=== PATIENT | female | born 1975 | race American Indian/Alaskan Native ===

== ENCOUNTER 2017-06-11 05:00 | Emergency (ER) | payer OTHER ==
[2017-06-11 05:11] VITALS: BP 111/68
[2017-06-11] MEDS ORDERED: BOOSTRIX IM ONE (05:28)
[2017-06-11] MEDS ORDERED: NORCO 5/325 PO ONE (05:29)
[2017-06-11] MEDS ORDERED: ZOFRAN ODT PO ONE (05:29)
[2017-06-11] MEDS ORDERED: MOTRIN PO ONE (05:29)
[2017-06-11] MEDS ORDERED: AUGMENTIN 875 MG PO ONE (05:29)
--- NOTE | 2017-06-11 05:32 | Emergency Department Report ---
ED Animal Bite HPI - General Chief Complaint: Animal Bite Stated Complaint: DOG BITE LT HAND; URINARY FREQ Time Seen by Provider: 06/11/17 05:18 Source: patient Mode of arrival: Ambulatory Limitations: No Limitations - History of Present Illness Initial Comments: 42-year-old female past medical history none presents with complaint of accidental dog bite to left hand. Patient states she was playing with her pitbull at home yesterday and while playing with toy pit bull bit her left palm. Patient states that she has some aching pain in the middle of her left palm. Patient denies fevers or chills. States that the dog is acting normally and has all of its vaccinations including rabies. Patient does not know when she last received tetanus vaccine. Patient has 2 small abrasions on the palmar side of left hand with one small abrasion on back of left hand. Patient states that the skin is slightly sensitive. Denies any significant redness or pus drainage from site of puncture. States that injury occurred 24 hours ago. Denies any significant difficulty ranging her left hand or fingers. Patient states that animal does see a manager mechanical and she has documentation that he has had its vaccinations. Injury not reported to animal control MD Complaint: animal bite Onset/Timin -: days(s) Left: Hand Animal: dog Animal Control Notified: No Description: household pet Mechanism: bite Context: playing with animal Associated Symptoms: none - Related Data Patient Tetanus UTD: No Previous Rx's Medication Instructions Recorded Last Taken Type Acetaminophen/Codeine [Tylenol 1 tab PO Q6H PRN #12 tab 06/11/17 Unknown Rx /Codeine # 3 tab] Amoxicillin/Potassium Clav 1 each PO BID #20 tablet 06/11/17 Unknown Rx [Augmentin 875-125 Tablet] Bacitracin Zinc Oint [Antibiotic 1 applicatio TP BID #1 tube 06/11/17 Unknown Rx Oint] Ibuprofen [Motrin] 800 mg PO Q8HR PRN #30 tablet 06/11/17 Unknown Rx Nitrofurantoin Monohyd/M-Cryst 100 mg PO BID #14 capsule 06/11/17 Unknown Rx [Macrobid 100 mg Capsule] Allergies Allergy/AdvReac Type Severity Reaction Status Date / Time sulfamethoxazole Allergy Hives Verified 06/11/17 05:11 [From Bactrim] trimethoprim [From Bactrim] Allergy Hives Verified 06/11/17 05:11 ED Review of Systems ROS: Stated complaint: DOG BITE LT HAND; URINARY FREQ Other details as noted in HPI Constitutional: denies: chills, fever Eyes: denies: eye pain, eye discharge, vision change ENT: denies: ear pain, throat pain Respiratory: denies: cough, shortness of breath, wheezing Cardiovascular: denies: chest pain, palpitations Endocrine: no symptoms reported Gastrointestinal: denies: abdominal pain, nausea, diarrhea Genitourinary: denies: urgency, dysuria, discharge Musculoskeletal: as per HPI. denies: back pain, joint swelling, arthralgia Skin: denies: rash, lesions Neurological: denies: headache, weakness, paresthesias Psychiatric: denies: anxiety, depression Hematological/Lymphatic: denies: easy bleeding, easy bruising ED Past Medical Hx - Past Medical History Previous Medical History?: No - Surgical History Past Surgical History?: Yes Additional Surgical History: Hysterectomy - Social History Smoking Status: Current Every Day Smoker Substance Use Type: None - Medications Home Medications: Home Medications Medication Instructions Recorded Confirmed Last Taken Type Acetaminophen/Codeine [Tylenol 1 tab PO Q6H PRN #12 tab 06/11/17 Unknown Rx /Codeine # 3 tab] Amoxicillin/Potassium Clav 1 each PO BID #20 tablet 06/11/17 Unknown Rx [Augmentin 875-125 Tablet] Bacitracin Zinc Oint [Antibiotic 1 applicatio TP BID #1 tube 06/11/17 Unknown Rx Oint] Ibuprofen [Motrin] 800 mg PO Q8HR PRN #30 tablet 06/11/17 Unknown Rx Nitrofurantoin Monohyd/M-Cryst 100 mg PO BID #14 capsule 06/11/17 Unknown Rx [Macrobid 100 mg Capsule] ED Physical Exam - General Limitations: No Limitations General appearance: alert, in no apparent distress - Head Head exam: Present: atraumatic, normocephalic - Eye Eye exam: Present: normal appearance, PERRL, EOMI - ENT ENT exam: Present: mucous membranes moist - Neck Neck exam: Present: normal inspection - Respiratory Respiratory exam: Present: normal lung sounds bilaterally. Absent: respiratory distress - Cardiovascular Cardiovascular Exam: Present: regular rate, normal rhythm. Absent: systolic murmur, diastolic murmur, rubs, gallop - GI/Abdominal GI/Abdominal exam: Present: soft, normal bowel sounds - Extremities Exam Extremities exam: Present: normal inspection - Expanded Upper Extremity Exam Left Shoulder Exam: Present: normal inspection, full ROM Upper Arm exam: Present: normal inspection, full ROM Elbow exam: Present: normal inspection, full ROM Forearm Wrist exam: Present: normal inspection, full ROM Hand Wrist exam: Present: tenderness (some tenderness mid palm region near abrasion) Hand L/R Front: 1 - Positive: abrasion (2 small abrasions here less than 1 cm each no visible cellulitis or palpable fluctuance) Hand L/R Back: 1 - Less than 1 cm superficial abrasion/puncture wound here no palpable fluctuance visible erythema or redness here. Slight swelling surrounding puncture wound Neuro motor exam: Present: wrist extension intact, thumb opposition intact, thumb IP flexion intact, thumb adduction intact, fingers 2-5 abduction intact Neurosensory exam: Present: radial nerve intact, ulnar nerve intact, median nerve intact Vascular: Present: normal capillary refill (distal capillary refill less than one second all fingers), radial pulse, brachial pulse, ulnar pulse - Back Exam Back exam: Present: normal inspection - Neurological Exam Neurological exam: Present: alert, oriented X3, CN II-XII intact - Psychiatric Psychiatric exam: Present: normal affect, normal mood - Skin Skin exam: Present: warm, dry, intact, normal color. Absent: rash ED Course Vital Signs 06/11/17 06/11/17 06/11/17 05:05 05:37 05:38 Temperature 98.2 F Pulse Rate 67 Respiratory 16 18 18 Rate Blood Pressure 111/68 O2 Sat by Pulse 100 Oximetry Critical care attestation.: If time is entered above; I have spent that time in minutes in the direct care of this critically ill patient, excluding procedure time. Critical Care Time: A/P: Dog bite left hand, increased urinary frequency 1-tetanus updated today. As patient states that her daughters had all of its vaccinations including rabies there is no indication for rabies vaccination at this time 2-Motrin when necessary, short course Tylenol 3 when necessary 3-10 day course of Augmentin to mitigate any infection of the left hand. X-ray shows no bony injury 4-I specifically advised the patient to return to the ED if she develops any significant erythema of left hand difficulty ranging her fingers pus drainage from left hand. Patient stated she understood my instructions. I educated her on the signs and symptoms of cellulitis. 5- patient incidentally states she has increased urinary frequency. I will treat her empirically with Macrobid. Urine culture sent ED Disposition Clinical Impression: Increased urinary frequency Dog bite of left hand Qualifiers: Encounter type: initial encounter Qualified Code(s): S61.452A - Open bite of left hand, initial encounter Disposition: TO HOME OR SELFCARE Is pt being admited?: No Does the pt Need Aspirin: No Condition: Stable Instructions: Animal Bite (ED), Urinary Tract Infection in Women (ED), Dysuria (ED) Prescriptions: Acetaminophen/Codeine [Tylenol /Codeine # 3 tab] 1 tab PO Q6H PRN #12 tab PRN Reason: Pain Amoxicillin/Potassium Clav [Augmentin 875-125 Tablet] 1 each PO BID #20 tablet Bacitracin Zinc Oint [Antibiotic Oint] 1 applicatio TP BID #1 tube Ibuprofen [Motrin] 800 mg PO Q8HR PRN #30 tablet PRN Reason: Pain Nitrofurantoin Monohyd/M-Cryst [Macrobid 100 mg Capsule] 100 mg PO BID #14 capsule Referrals: [facility] [Outside] - 3-5 Days [facility] [Outside] - 3-5 Days Forms: Work/School Release Form(ED) Time of Disposition: 06:13
--- NOTE | 2017-06-11 05:46 | XRay Report ---
FINAL REPORT EXAM: XR HAND 2V LT HISTORY: s/p dog bite left hand TECHNIQUE: AP and lateral views of the left hand were submitted. FINDINGS: There is no evidence of fracture, dislocation or radiopaque foreign body. There is a very small calcification along the medial margin of the distal interphalangeal joint of the index finger. Whether this is related to remote trauma or arthritis is uncertain. The wrist joint does not show any acute changes. The soft tissues are unremarkable. IMPRESSION: No acute process identified.
[2017-06-11 05:49] LABS: Bilirubin,Urine NEG (Negative); Blood,Urine SM (Negative); Color,Urine Yellow (Yellow); Mucus,Urine FEW /HPF; Nitrite,Urine NEG (Negative); Protein,Urine <15 mg/dL mg/dL (Negative); Urobilinogen,Urine < 2.0 mg/dL (<2.0)
== END 2017-06-11 06:53 | disposition home or self-care (01) ==
LOC: ED 05:00
DX: S61.452A Open bite of left hand, initial encounter (principal); R35.0 Frequency of micturition; F17.200 Nicotine dependence, unspecified, uncomplicated; Z90.710 Acquired absence of both cervix and uterus; Z88.2 Allergy status to sulfonamides; W54.0XXA Bitten by dog, initial encounter; Y93.89 Activity, other specified; Y99.8 Other external cause status; Y92.009 Unspecified place in unspecified non-institutional (private) residence as the place of occurrence of the external cause
CPT/HCPCS: 81001; 87086; 90471; 90715; 99284; Q0162